=== PATIENT | male | born 1990 | race Caucasian/White ===

== ENCOUNTER 2022-08-10 14:23 | Observation (INO) | payer SELFPAY ==
[~2022-08-10] VITALS: Ht 185.4 cm; Wt 172.8 kg
[2022-08-10 16:04] VITALS: BP 134/77; PULSE 73; TEMP 97.9
--- NOTE | 2022-08-10 16:45 | NUR ---
RECEIVED CHANGE OF SHIFT REPORT OF PATIENT'S ADMISSION TO ROOM 330. FAMILY AT BEDSIDE. PATIENT RESTING QUIETLY IN BED WITH NO C/O CURRENTLY
[2022-08-10] MEDS ORDERED: PROTONIX 40MG T40 MG PO (17:28)
[2022-08-10 20:49] VITALS: BP 124/73; PULSE 57; TEMP 97.9
--- NOTE | 2022-08-10 22:30 | NUR ---
CONSENT FORM SIGNED WITH NO FURTHER QUESTIONS OR CONCERNS.
[2022-08-11] VITALS (12 sets, daily range): BP systolic 119–166; BP diastolic 58–106; PULSE 52–89; TEMP 97.1–98
[2022-08-11 06:26] LABS: BASO % 0.7 % (0.0-2.0); EOS # 0.1 K/mm3 (0.0-0.7); EOS % 2.6 % (0.0-4.0); GRAN # 2.6 K/mm3 (1.4-6.5); GRAN % 47.7 % (42.2-75.2); HEMATOCRIT 41.9 % (42.0-52.0); HEMOGLOBIN 14.1 g/dl (13.5-18.0); LYMPH % 37.2 % (20.0-51.0); MEAN CELL VOLUME 85 fl (80.0-100.0); MEAN CORPUSCULAR HEMOGLOBIN 29 pg (27-31); MEAN CORPUSCULAR HGB CONC 34 g/dl (33.0-37.0); MEAN PLATELET VOLUME 11.9 fl (7.4-10.4); MONO # 0.6 K/mm3 (0.1-0.6); MONO % 11.4 % (1.7-9.3); PLATELET COUNT 167 K/mm3 (130-400); RED BLOOD COUNT 4.94 M/mm3 (4.20-5.60); REDCELL DISTRIBUTION WIDTH-CV 12.8 % (11.5-14.5)
[2022-08-11 06:54] LABS: ALBUMIN 3.4 gm/dL (3.5-5.0); BILIRUBIN,TOTAL 5.1 mg/dL (0.2-1.2); CALCIUM 8.6 mg/dL (8.4-10.2); CREATININE, serum 0.81 mg/dL (0.72-1.25); POTASSIUM 3.9 mmol/L (3.5-4.5)
--- NOTE | 2022-08-11 07:09 | NUR ---
CHANGE OF SHIFT REPORT GIVEN TO DAY SHIFT LAKEISHA OLVERA
--- NOTE | 2022-08-11 08:32 | NUR ---
PT SITTING ON SIDE OF BED, PT REPORTS PAIN RELIEF WHEN SITTINGUP ON SOB. IC GREEN GIVEN PER ORDERS. PT PLANS ON SHOWERING @ 1000. SURGERY AROUND NOON, WITH .
--- NOTE | 2022-08-11 19:21 | NUR ---
RECEIVED CHANGE OF SHIFT REPORT FROM DAY SHIFT RN.
[2022-08-12 03:16] VITALS: BP 144/78; PULSE 82; TEMP 98.5
[2022-08-12 06:40] LABS: BASO % 0.1 % (0.0-2.0); EOS % 0.1 % (0.0-4.0); GRAN # 7.4 K/mm3 (1.4-6.5); GRAN % 78.3 % (42.2-75.2); HEMATOCRIT 44.2 % (42.0-52.0); LYMPH # 1.1 K/mm3 (1.2-3.4); MEAN CELL VOLUME 82 fl (80.0-100.0); MEAN CORPUSCULAR HEMOGLOBIN 28 pg (27-31); MEAN CORPUSCULAR HGB CONC 34 g/dl (33.0-37.0); MEAN PLATELET VOLUME 11.9 fl (7.4-10.4); MONO % 10.1 % (1.7-9.3); PLATELET COUNT 230 K/mm3 (130-400); RED BLOOD COUNT 5.42 M/mm3 (4.20-5.60); REDCELL DISTRIBUTION WIDTH-CV 12.7 % (11.5-14.5)
[2022-08-12 07:02] LABS: ALBUMIN 3.8 gm/dL (3.5-5.0); BILIRUBIN,TOTAL 8.3 mg/dL (0.2-1.2); CALCIUM 9.3 mg/dL (8.4-10.2); CREATININE, serum 0.81 mg/dL (0.72-1.25); MAGNESIUM 2.2 mg/dL (1.6-2.6); POTASSIUM 3.9 mmol/L (3.5-4.5); TOTAL PROTEIN 6.7 gm/dL (6.2-8.1)
--- NOTE | 2022-08-12 07:13 | NUR ---
CHANGE OF SHIFT REPORT GIVEN TO DAY SHIFT RNJONATHAN. PATIENT SLEPT IN RECLINER CHAIR INTERMITTENTLY THROUGH THE SHIFT. IV SITE INT TO LEFT HAND. PATIENT UP INDEPENDENTLY IN ROOM, VOIDING WITH NO PROBLEMS. REPORTED PASSED SOME FLATUS, TOLERATING FLUID INTAKE WITH NO PROBLEMS.
[2022-08-12 08:00] VITALS: BP 159/93; PULSE 56; TEMP 97.7
[2022-08-12] MEDS ORDERED: NORCO 325 MG-51 TAB PO ×2 (09:19)
[2022-08-12] MEDS ORDERED: ROXICODONE 55 MG/TAB PO (11:49)
[2022-08-12 11:52] VITALS: BP 168/87; PULSE 69; TEMP 97.9
--- NOTE | 2022-08-12 12:37 | NUR ---
1230 - PATIENT DISCHARGE PACKET AND EDUCATION PROVIDED TO PATIENT AND FAMILY. ALL QUESTIONS ANSWERED. IV REMOVED PER PROTOCOL. PATIENT SAFELY TRANSPORTED TO ED ENTRANCE BY RN WITH FAMILY FOR DISCHARGE.
--- NOTE | 2022-08-12 14:26 | NUR ---
Tea Taster rounds: Patient was sitting in recliner with arms resting on bedside table which was placed in a high position. Patient expected to go home today. Patient had had gallstones. His pain, however, was in his shoulder. His was with him. They were both happy to get home to their kids. They also have two dogs that they miss. 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
== END 2022-08-12 12:39 | disposition home or self-care (01) ==
LOC: SDCO 14:23 → EDSTATUS 14:24 → SURG 15:39
PROVIDERS: ADMIT Internal Medicine
DX: K80.12 Calculus of gallbladder with acute and chronic cholecystitis without obstruction (principal); R93.2 Abnormal findings on diagnostic imaging of liver and biliary tract; E66.01 Morbid (severe) obesity due to excess calories; F17.220 Nicotine dependence, chewing tobacco, uncomplicated; R74.01 Elevation of levels of liver transaminase levels; J44.9 Chronic obstructive pulmonary disease, unspecified; Z68.43 Body mass index [BMI] 50.0-59.9, adult; I10 Essential (primary) hypertension
CPT/HCPCS: C1769; G0378; J0330; J0360; J0690; J1100; J1170; J1885; J2405; J2550; J2704; J3010; J7030; Q9966